=== PATIENT | female | born 1980 | race Caucasian/White ===

== ENCOUNTER 2018-12-09 19:43 | Emergency (ER) | payer OTHER ==
[2018-12-09] MEDS ORDERED: NORMAL SALINE 1000 ML 1,000 ML IV ONE (20:44)
[2018-12-09] MEDS ORDERED: METOCLOPRAMIDE HCL INJ/PF 10 MG/2 ML SDV IV ONE (20:44)
[2018-12-09 21:01] LABS: ABSOLUTE EOSINOPHILS # (AUTO) 0.2 10^3/uL (0.0-0.6); ABSOLUTE LYMPHOCYTES (AUTO) 2.6 10^3/uL (0.5-4.7); ABSOLUTE MONOCYTES (AUTO) 0.6 10^3/uL (0.1-1.4); ABSOLUTE NEUT (AUTO) 3.1 10^3/uL (1.7-8.2); BASOPHILS % (AUTO) 0.6 % (0-2); EOSINOPHILS % (AUTO) 3.5 % (0-6); HEMATOCRIT 36.3 % (36.0-47.0); LYMPHOCYTES % (AUTO) 39.6 % (13-45); MEAN CORPUSCULAR HEMOGLOBIN 29.9 pg (27.0-33.4); MEAN CORPUSCULAR HGB CONC 33.1 g/dL (32.0-36.0); MEAN CORPUSCULAR VOLUME 90 fl (80-97); MONOCYTES % (AUTO) 8.6 % (3-13); PLATELET COUNT 333 10^3/uL (150-450); RED BLOOD COUNT 4.01 10^6/uL (3.72-5.28); RED CELL DISTRIBUTION WIDTH 14.7 % (11.5-14.0); SEGMENTED NEUTROPHILS % (AUTO) 47.7 % (42-78); TOTAL CELLS COUNTED % (AUTO) 100 %; WHITE BLOOD COUNT 6.5 10^3/uL (4.0-10.5)
[2018-12-09 21:03] LABS: ALANINE AMINOTRANSFERASE 40 U/L (9-52); ALBUMIN 3.8 g/dL (3.5-5.0); ALKALINE PHOSPHATASE 93 U/L (38-126); ANION GAP 7 (5-19); ASPARTATE AMINO TRANSFERASE 29 U/L (14-36); BILIRUBIN,DIRECT 0.2 mg/dL (0.0-0.4); BILIRUBIN,TOTAL 0.3 mg/dL (0.2-1.3); BLOOD UREA NITROGEN 16 mg/dL (7-20); CALCIUM 8.7 mg/dL (8.4-10.2); CARBON DIOXIDE 20 mmol/L (22-30); CHLORIDE 113 mmol/L (98-107); POTASSIUM 3.8 mmol/L (3.6-5.0); SODIUM 140.3 mmol/L (137-145); TOTAL PROTEIN 6.6 g/dL (6.3-8.2)
[2018-12-09 21:06] LABS: GLUCOSE 58 mg/dL (75-110)
--- NOTE | 2018-12-09 21:13 | EKG REPORT ---
SEVERITY:- ABNORMAL ECG - SINUS RHYTHM NONSPECIFIC INTRAVENTRICULAR CONDUCTION DELAY NONSPECIFIC ST-T CHANGES- INFERIOR LEADS : Confirmed by: Dawson Scott MD 09-Dec-2018 21:13:17
--- NOTE | 2018-12-09 21:56 | RADIOLOGY REPORT (SQ) ---
EXAM DESCRIPTION: [facility]: XR CHEST 1 VIEW CLINICAL HISTORY: 38 years Female, cp COMPARISON: None. FINDINGS: Lungs are clear, with no focal infiltrate, pneumothorax, or pleural effusion. Mediastinum is within normal limits for this positioning. Bony structures are unremarkable. IMPRESSION: No acute pulmonary findings.
--- NOTE | 2018-12-09 23:16 | ER Document Report ---
ED General - General Chief Complaint: Chest Pain Stated Complaint: CHEST PAIN Time Seen by Provider: 12/09/18 20:43 Primary Care Provider: KARL WALDEN MD [Primary Care Provider] - Follow up as needed Notes: Patient is a 38-year-old female with a past medical history of morbid obesity, diabetes, peripheral neuropathy, depression, anxiety, presents with "having 1 of my episodes". Initially the patient was listed as having chest pain. The patient states that she has had several months of chronic chest pain also with an pain in her arm and neck which has been diagnosed as being from her thoracic outlet syndrome and for which she is following with CT surgery at [facility]. The reason that she came to the emergency department tonight is because she was eating at a restaurant with family, abruptly developed "1 of her episodes" which consists of whole body shaking without loss of consciousness. The patient reports that she has 3-4 of these episodes per week. She has been seen by neurology, had a continuous EEG, and was informed that she does not have seizures. She states that during these episodes she is able to hear what is going on around her, that her usually is telling her to "snap out of it" but states" I want to but I just cannot". Episodes usually last several minutes and then resolve spontaneously. She denies any known trigger. Do resolve without intervention. Patient states these episodes of been ongoing for several months and started after they began having financial difficulty trying to get a house. Currently the time of my assessment she denies any complaints. She denies any focal weakness, numbness, or changes in vision, headache, or any additional new concerns. TRAVEL OUTSIDE OF THE [place] IN LAST 30 DAYS: No - Related Data Allergies/Adverse Reactions: NSAIDS (Non-Steroidal Anti-Inflamma Allergy (Mild, Verified 12/09/18 20:28) Past Medical History - General Information source: Patient, Relative - Social History Smoking Status: Never Smoker Frequency of alcohol use: None Drug Abuse: None Lives with: Spouse/Significant other Family History: Reviewed & Not Pertinent Patient has suicidal ideation: No Patient has homicidal ideation: No Renal/ Medical History: Denies: Hx Peritoneal Dialysis Past Surgical History: Reports: Hx Abdominal Surgery - gastric bypass, Hx Cholecystectomy Review of Systems - Review of Systems Notes: Constitutional: Negative for fever. HENT: Negative for sore throat. Eyes: Negative for visual changes. Cardiovascular: Positive for chest pain. Respiratory: Negative for shortness of breath. Gastrointestinal: Negative for abdominal pain, vomiting or diarrhea. Genitourinary: Negative for dysuria. Musculoskeletal: Negative for back pain. Skin: Negative for rash. Neurological: Positive for episode of shaking 10 point ROS negative except as marked above and in HPI. Physical Exam - Vital signs Vitals: Pulse Resp BP Pulse Ox 74 15 130/108 H 100 12/09/18 20:00 12/09/18 20:00 12/09/18 20:00 12/09/18 20:00 Interpretation: Normal Notes: PHYSICAL EXAMINATION: GENERAL: Well-appearing, well-nourished and in no acute distress. HEAD: Atraumatic, normocephalic. EYES: Pupils equal round and reactive to light, extraocular movements intact, sclera anicteric, conjunctiva are normal. ENT: nares patent, oropharynx clear without exudates. Moist mucous membranes. NECK: Normal range of motion, supple without lymphadenopathy LUNGS: Breath sounds clear to auscultation bilaterally and equal. No wheezes rales or rhonchi. HEART: Regular rate and rhythm without murmurs ABDOMEN: Soft, morbidly obese abdomen, nontender, normoactive bowel sounds. No guarding, no rebound. No masses appreciated. EXTREMITIES: Normal range of motion, no pitting or edema. No cyanosis. NEUROLOGICAL: Face symmetric. Tongue protrudes midline. Extraocular motions in tact. Pupils are 2 mm and equally reactive. Normal speech, normal gait. 5 out of 5 strength in both the distal and proximal upper and lower extremities bilaterally. Sensation is grossly intact throughout. Finger to nose testing normal. Pronator drift normal. PSYCH: Normal mood, normal affect. SKIN: Warm, Dry, normal turgor, no rashes or lesions noted. Course - Re-evaluation Re-evalutation: 12/09/18 23:12 Patient presents with an episode in which she developed shaking numbness and also apparently had associated chest discomfort. I spent over 20 minutes at the bedside with the patient has been reviewing an extensive history of similar episodes over the last 4-5 months. Patient states these started after they had increased stress in their life, attempting to get into the house but unable to do so for financial reasons. The patient reports that she has been under significant stress, currently treated for anxiety and depression. The patient does report that she has been evaluated by neurology, had a continuous EEG, has been told that she does not have epilepsy. She also remains conscious during these episodes of shaking which involve bilateral upper and lower extremities by definition excluding a generalized tonic-clonic seizure. She is likewise not passing out which would make a syncopal episode with associated tonic-clonic jerking unlikely. On exam, patient is well in appearance, vitals within normal limits. She has no focal neurologic deficits on exam. Labs unremarkable. Denies any ongoing chest pain. States this is identical to previous episodes that she has had many times in the past over the past 4-5 months. 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 I reviewed this with the patient and encouraged her to follow-up with psychiatry. Regards the patient's chest discomfort she states this has been ongoing in her chest, neck and left upper extremity for months. She states she has been diagnosed with thoracic outlet syndrome secondary to having 2 extra ribs and that the pain has been attributed to her thoracic outlet syndrome. She is clear to state that this is not new or different tonight and is not the reason that she came to the emergency department. She states the main concern was the episode of shaking while at a restaurant that resulted in her being brought to the emergency department. At this time will discharge with return precautions and follow-up recommendations. Verbal discharge instructions given a the bedside and opportunity for questions given. Medication warnings reviewed. Patient is in agreement with this plan and has verbalized understanding of return precautions and the need for primary care follow-up in the next 24-72 hours. - Vital Signs Vital signs: Temp Pulse Resp BP Pulse Ox 97.6 F 74 21 H 108/66 99 12/09/18 23:33 12/09/18 20:00 12/09/18 23:33 12/09/18 23:33 12/09/18 23:33 - Laboratory Result Diagrams: 12/09/18 20:00 12/09/18 20:00 Laboratory results interpreted by me: 12/09/18 12/09/18 20:00 20:00 RDW 14.7 H Chloride 113 H Carbon Dioxide 20 L Glucose 58 L - Diagnostic Test Radiology reviewed: Image reviewed, Reports reviewed Radiology results interpreted by me: 12/09/18 23:14 Chest x-ray: No acute infiltrate or pneumothorax - EKG Interpretation by Me Additional EKG results interpreted by me: 12/09/18 23:15 Sinus rhythm, rate 70. No ST elevations or depressions. QTC is 423. Discharge - Discharge Clinical Impression: Pseudoseizures, Episode of shaking, Chest discomfort Condition: Good Disposition: HOME, SELF-CARE Additional Instructions: Your episode of shaking today was likely due to something called PNES, also known as pseudogenic non-epileptiform seizures. These are often also often referred to as pseudoseizures. These are not voluntary. However, they are not coming from an abnormal focus in your brain like somebody who has true epilepsy. These episodes can often be triggered by stress, anxiety, or not taking your normal medications. Please follow-up with your primary care doctor at your earliest ability. Return for any additional concerns you may have including if you develop a fever, nausea, vomiting, pass out, have focal weakness or numbness, or any other symptoms that are concerning to you. You were seen today for chest pain. The exact cause of your pain is unclear. However, based on your cardiac enzyme testing, chest x-ray, and EKG it does not appear that it is from an immediately life-threatening cause at this time. After conversation you report that this has been diagnosed as being from thoracic outlet syndrome in the past and it does seem consistent with this di agnosis. Please return to emergency department immediately if you have worsening of your chest pain, shortness of breath, vomiting, become unable to exert yourself due to pain or difficulty breathing, you pass out, or have any pain that radiates into your arms, jaw, or back. Please also return if you have any additional symptoms that are concerning to you. Referrals: KARL WALDEN MD [Primary Care Provider] - Follow up as needed
[2018-12-09 23:34] VITALS: BP 108/66
== END 2018-12-09 23:39 | disposition home or self-care (01) ==
LOC: ER 19:43
DX: G40.89 Other seizures (principal); R07.9 Chest pain, unspecified; E66.01 Morbid (severe) obesity due to excess calories; Z98.84 Bariatric surgery status; Z90.49 Acquired absence of other specified parts of digestive tract
CPT/HCPCS: 93005; 99284; 96361; 96374; 36415; 82962; 84703; 85025; 80053; 84484; 71045; 93010; J2765; J7030

== ENCOUNTER 2019-06-21 15:48 | Emergency (ER) | payer SELFPAY ==
--- NOTE | 2019-06-21 16:03 | ER Document Report ---
ED Medical Screen (RME) - General Chief Complaint: Shortness Of Breath Stated Complaint: SHORTNESS OF BREATH Time Seen by Provider: 06/21/19 15:59 Primary Care Provider: KARL WALDEN MD [Primary Care Provider] - Follow up as needed Mode of Arrival: Ambulatory Information source: Patient Notes: 39-year-old female presented to ED for complaint of shortness of breath and asthma attack. She states it is very hard for her to breathe. She states she is used her respiratory inhaler multiple times today. O2 sats are 100 pulse is 79-80. Patient is hyperventilating at this time. Patient states she feels like her throat is closing up but when she does take slow deep breaths lungs are clear to auscultation. Will order a chest x-ray at this time. I have greeted and performed a rapid initial assessment of this patient. A comprehensive ED assessment and evaluation of the patient, analysis of test results and completion of medical decision making process will be conducted by an additional ED providers. TRAVEL OUTSIDE OF THE [place] IN LAST 30 DAYS: Yes - Related Data Allergies/Adverse Reactions: NSAIDS (Non-Steroidal Anti-Inflamma Allergy (Mild, Verified 12/09/18 20:28) Past Medical History Renal/ Medical History: Denies: Hx Peritoneal Dialysis Past Surgical History: Reports: Hx Abdominal Surgery - gastric bypass, Hx Cholecystectomy Physical Exam - Vital signs Vitals: Temp Pulse Resp BP Pulse Ox 97.5 F 87 36 H 151/98 H 100 06/21/19 15:52 06/21/19 15:52 06/21/19 15:52 06/21/19 15:52 06/21/19 15:52 Course - Vital Signs Vital signs: Temp Pulse Resp BP Pulse Ox 97.5 F 87 36 H 151/98 H 100 06/21/19 15:52 06/21/19 15:52 06/21/19 15:52 06/21/19 15:52 06/21/19 15:52 Doctor's Discharge - Discharge Referrals: KARL WALDEN MD [Primary Care Provider] - Follow up as needed
[2019-06-21] MEDS: ALBUTEROL SULFATE 0.083% NEB 2.5 MG/3 ML AMPUL NEB SCH ×3 (16:10→17:33)
--- NOTE | 2019-06-21 16:46 | RADIOLOGY REPORT (SQ) ---
EXAM DESCRIPTION: CHEST 2 VIEWS COMPLETED DATE/TIME: 06/21/2019 4:29 pm REASON FOR STUDY: short of breath COMPARISON: 12/09/2018. EXAM PARAMETERS: NUMBER OF VIEWS: two views TECHNIQUE: Digital Frontal and Lateral radiographic views of the chest acquired. RADIATION DOSE: NA LIMITATIONS: none FINDINGS: LUNGS AND PLEURA: No opacities, masses or pneumothorax. No pleural effusion. MEDIASTINUM AND HILAR STRUCTURES: No masses or contour abnormalities. HEART AND VASCULAR STRUCTURES: Heart normal size. No evidence for failure. BONES: No acute findings. HARDWARE: None in the chest. OTHER: No other significant finding. IMPRESSION: NO ACUTE RADIOGRAPHIC FINDING IN THE CHEST. TECHNICAL DOCUMENTATION: JOB ID: [id number] [employer]- All Rights Reserved Reading location - IP/workstation name: [email or web address]
[2019-06-21] MEDS ORDERED: PREDNISONE 20 MG TABLET PO ONE (21:10)
[2019-06-21] MEDS ORDERED: BENZONATATE 100 MG CAPSULE PO ONE (21:11)
--- NOTE | 2019-06-21 21:16 | ER Document Report ---
HPI - HPI Patient complains to provider of: asthma exacerbation Time Seen by Provider: 06/21/19 15:59 Pain Level: Denies Context: Patient presents stating that she has had a cold for the past 2 weeks. Patient states cough worsened at work and she ended up having an asthma attack. Patient was seen in triage and given multiple nebulizer treatments. Patient states that her shortness of breath has resolved and she is feeling much better at this time. Patient denies any fever. Associated Symptoms: Nonproductive cough, Shortness of breath. denies: Fever, Nausea, Vomiting Exacerbated by: Denies Relieved by: Denies Similar symptoms previously: Yes Recently seen / treated by doctor: No - ROS ROS below otherwise negative: Yes Systems Reviewed and Negative: Yes All other systems reviewed and negative - CONSTITUTIONAL Constitutional: DENIES: Fever, Chills - EENT EENT: DENIES: Congestion - CARDIOVASCULAR Cardiovascular: REPORTS: Chest pain - RESPIRATORY Respiratory: REPORTS: Trouble Breathing, Coughing - GASTROINTESTINAL Gastrointestinal: DENIES: Abdominal Pain, Nausea, Patient vomiting - REPRODUCTIVE Reproductive: DENIES: : - MUSCULOSKELETAL Musculoskeletal: DENIES: Back Pain - DERM Skin Color: Normal Skin Problems: None Past Medical History - General Information source: Patient - Social History Smoking Status: Never Smoker Chew tobacco use (# tins/day): No Frequency of alcohol use: None Drug Abuse: None 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 Family History: Reviewed & Not Pertinent Patient has suicidal ideation: No Patient has homicidal ideation: No - Medical History Medical History: Other - Thoracic outlet syndrome Pulmonary Medical History: Reports: Hx Asthma Renal/ Medical History: Denies: Hx Peritoneal Dialysis Psychiatric Medical History: Reports: Hx Anxiety, Hx Depression Past Surgical History: Reports: Hx Cholecystectomy, Hx Gastric Bypass Surgery Vertical Provider Document - CONSTITUTIONAL Agree With Documented VS: Yes Exam Limitations: No Limitations General Appearance: WD/WN, No Apparent Distress - INFECTION CONTROL TRAVEL OUTSIDE OF THE [place] IN LAST 30 DAYS: Yes - HEENT HEENT: Atraumatic, Normal ENT Exam, Normocephalic - NECK Neck: Normal Inspection, Supple - RESPIRATORY Respiratory: Breath Sounds Normal, No Respiratory Distress, Chest Non-Tender. negative: Rhonchi, Wheezing - CARDIOVASCULAR Cardiovascular: Regular Rate, Regular Rhythm, No Murmur - BACK Back: Normal Inspection - MUSCULOSKELETAL/EXTREMETIES Musculoskeletal/Extremeties: MAEW - NEURO Level of Consciousness: Awake, Alert, Appropriate Motor/Sensory: No Motor Deficit - DERM Integumentary: Warm, Dry, No Rash Course - Re-evaluation Re-evalutation: 06/21/19 21:12 Respirations even unlabored, patient nontoxic in appearance. Chest x-ray reviewed, no concern for pneumonia or pneumothorax. Patient reports that she is much better after her nebulizer treatments. Good return precautions discussed with patient. - Vital Signs Vital signs: Temp Pulse Resp BP Pulse Ox 97.5 F 87 36 H 151/98 H 100 06/21/19 15:52 06/21/19 15:52 06/21/19 15:52 06/21/19 15:52 06/21/19 15:52 - Diagnostic Test Radiology reviewed: Reports reviewed Discharge - Discharge Clinical Impression: Upper respiratory infection Qualifiers: URI type: unspecified URI Qualified Code(s): J06.9 - Acute upper respiratory infection, unspecified Asthma exacerbation Qualifiers: Asthma severity: unspecified severity Asthma persistence: unspecified Qualified Code(s): J45.901 - Unspecified asthma with (acute) exacerbation Condition: Stable Disposition: HOME, SELF-CARE Additional Instructions: Return immediately for any new or worsening symptoms Followup with your primary care provider, call tomorrow to make a followup appointment ASTHMA: You have been diagnosed as having asthma. This is a condition where there is episodic tightness in the bronchial tubes. Allergies, infections, and polluted or cold air may be contributing factors. Emergency treatment of a severe asthma attack may include adrenaline shots, or bronchodilator aerosol. You may feel lightheaded, have a decreased exercise tolerance and a rapid pulse for an hour or two. Rest and get plenty of fluids. Home treatment of asthma requires bronchodilator drugs. These can be administered by injection, inhalation, or by mouth. Antibiotics and corticosteroids may be required for some patients. You should avoid chemical fumes, dusts, pollens, and exercising in very cold or dry air. If you smoke, stop!! If you develop a fever, increased wheezing, chest pain, or severe shortness of breath, you should contact the doctor immediately. STEROID MEDICATION: You have been given an injection of or oral medicine of the cortisone/steroid class. This medication is used to control inflammation or allergy. Abel t is usually only given for a short period of time, until the acute process subsides. There are usually no side effects from short-term use of cortisone-like medications. Some persons feel an increased sense of well-being and are not sleepy at bedtime. Long-term use of cortisone medications is best avoided, unless required for a severe condition. If your condition does not remit, or relapses after the course of corticosteroid medication, you should consult your physician. INHALED BRONCHODILATORS: You have received treatment(s) of and/or prescription for an inhaled bronchodilator -- a medication which stimulates the airways in the lung to dilate. This improves the flow of air in asthma, bronchitis, and emphysema. These medicines have some similarity to adrenaline, and can cause similar side effects: shakiness, racing heart, and a sense of nervousness. These side effects decrease with time. Contact your doctor if these side effects are severe. Do not over-use the medicine. Too-frequent use of the inhaler may make it ineffective. Call your doctor if the inhaler is not controlling your symptoms at the prescribed doses. USE OF ACETAMINOPHEN: Acetaminophen may be taken for pain relief or fever control. It's much safer than aspirin, offering a wider range of "safe" dosages. It is safe during . Some brand names are Tylenol, Panadol, Datril, Anacin 3, Tempra, and Liquiprin. Acetaminophen can be repeated every four hours. The following are maximum recommended dosages: USE OF ACETAMINOPHEN (Tylenol): Acetaminophen may be taken for pain relief or fever control. It's much safer than aspirin, offering a wider range of "safe" dosages. It is safe during . Some brand names are Tylenol, Panadol, Datril, Anacin 3, Tempra, and Liquiprin. Acetaminophen can be repeated every four hours. The following are maximum recommended dosages: WEIGHT Dose Drops Elixir Chewable(80mg) (LBS.) drprs=droppers tsp=teaspoon >89 pounds or adults 650 mg to 900 mg Acetaminophen can be repeated every four hours. Maximum dose not to exceed 4000 mg a day. These maximum recommended dosages are slightly higher than the dosages written on the product container, but these dosages are very safe and below the toxic dosage for acetaminophen. FOLLOW-UP CARE: If you have been referred to a physician for follow-up care, call the physicians office for an appointment as you were instructed or within the next two days. If you experience worsening or a significant change in your symptoms, notify the physician immediately or return to the Emergency Department at any time for re-evaluation. Prescriptions: Benzonatate [Tessalon Perle 100 mg Capsule] 100 mg PO Q8HP PRN #20 cap PRN Reason: Prednisone [Deltasone 20 mg Tablet] 3 tab PO DAILY 4 Days tablet Nebulizer [Nebulizer Machine] 1 each MC ASDIR PRN #1 kit PRN Reason: Albuterol Sulfate [Ventolin 0.083% Neb 2.5 mg/3 ml Ampul] 1 vial NEB Q4 PRN #30 vial PRN Reason: Forms: Return to Work Referrals: KARL WALDEN MD [Primary Care Provider] - Follow up tomorrow
[2019-06-21 21:33] VITALS: BP 120/77
== END 2019-06-21 21:33 | disposition home or self-care (01) ==
LOC: ER 15:48
DX: J45.901 Unspecified asthma with (acute) exacerbation (principal); J06.9 Acute upper respiratory infection, unspecified; Z90.49 Acquired absence of other specified parts of digestive tract; Z98.84 Bariatric surgery status
CPT/HCPCS: 71046; J7512